=== PATIENT | male | born 1980 | race Caucasian/White ===

== ENCOUNTER 2021-08-15 21:39 | Emergency (ER) | payer OTHER | END 2021-08-15 23:30 | disposition home or self-care (01) | LOC: ER1 21:39 | DX: S01.01XA Laceration without foreign body of scalp, initial encounter (principal); Z23 Encounter for immunization; W22.8XXA Striking against or struck by other objects, initial encounter | CPT/HCPCS: 12001; 70450; 90471; 90715; 99283 ==

== ENCOUNTER → 2021-11-28 | Outpatient (CLI) | payer OTHER | LOC: KOH-I 11:09 | DX: M25.512 Pain in left shoulder (principal) | CPT/HCPCS: 73030 ==